=== PATIENT | male | born 2005 | race Caucasian/White ===

== ENCOUNTER 2024-05-12 14:07 | Emergency (ER) | payer MEDICAID ==
[~2024-05-12] VITALS: Ht 172.7 cm; Wt 87.0 kg
[2024-05-12 14:12] VITALS: BP 122/55; TEMP 98.4; O2SAT 100
[2024-05-12 14:37] VITALS: PULSE 72; RESP 18; O2SAT 100
[2024-05-12] MEDS ORDERED: TETANUS, DIPHTHERIA, PERTUSSIS VAC/PF 0.5ML (>10YR OLD) IM ONE (16:30)
[2024-05-12] MEDS ORDERED: LIDOCAINE HCL 1% 20ML VIAL INFIL ONE (16:30)
== END 2024-05-12 17:45 | disposition home or self-care (01) ==
LOC: ER 14:16
DX: S61.411A Laceration without foreign body of right hand, initial encounter (principal); W20.8XXA Other cause of strike by thrown, projected or falling object, initial encounter; Y93.89 Activity, other specified; Y92.89 Other specified places as the place of occurrence of the external cause; Y99.8 Other external cause status
CPT/HCPCS: 99281